=== PATIENT | female | born 1950 | race Caucasian/White ===

== ENCOUNTER → 2016-03-23 | Outpatient (CLI) | payer OTHER ==
[2016-03-23 17:38] LABS: Basophils % (A) 1 %; CH 32.1; CHCM 33.3; Eosinophils # (A) 0.2 k/uL (0-0.7); Eosinophils % (A) 2 %; HCT 43.8 % (34.0-46.0); HDW 2.24; HGB 14.4 gm/dL (11.4-16.0); Luc # (Auto) 0.15; Luc % (Auto) 2; Lymphocytes # (A) 1.7 k/uL (1.0-4.8); Lymphocytes % (A) 23 %; MCH 31.7 pg (25.0-35.0); MCHC 32.8 g/dL (31.0-37.0); MCV 96.7 fL (80.0-100.0); Mean Platelet Volume 6.5; Monocytes # (A) 0.6 k/uL (0-1.0); Monocytes % (A) 8 %; Neutrophils # (A) 4.5 k/uL (1.3-7.7); Neutrophils % (A) 64 %; RBC 4.53 m/uL (3.80-5.40); RDW 12.6 % (11.5-15.5); WBC 7.2 k/uL (3.8-10.6); WBC (Perox) 7.58
== END | disposition home or self-care (01) ==
LOC: LABPAT 16:39
PROVIDERS: ATTEND Obstetrics & Gynecology
DX: Z01.810 Encounter for preprocedural cardiovascular examination (principal); Z01.812 Encounter for preprocedural laboratory examination; N85.01 Benign endometrial hyperplasia; I10 Essential (primary) hypertension
CPT/HCPCS: 85025; 93005

== ENCOUNTER 2016-04-11 09:11 | Day surgery (SDC) | payer OTHER ==
[~2016-04-11 09:11] MED LIST: DEXAMETHASONE SOD PHOSPHATE 10 MG/ML 1 ML VIAL IV ONE; FAMOTIDINE 20 MG/2 ML VIAL IV PRN; HYDROmorphone 1 MG/ML 1 ML SYRINGE IVP PRN; MIDAZOLAM 2 MG/2 ML VIAL IV PRN; Pre Op ABX Message 1 EACH MISC MISCELLANE ONE; SCOPOLAMINE 1.5MG/72HR PATCH TRANSDERM ONE
[2016-04-11] MEDS: LACTATED RINGERS 1,000 ML IV SCH ×2 (10:09→10:45)
[2016-04-11] MEDS ORDERED: LIDOCAINE 1% 20 ML VIAL (10MG/ML) FOR IV START INTRADERMA ONE (10:09)
[2016-04-11] MEDS ORDERED: diphenhydrAMINE 50 MG/ML 1 ML VIAL IVP PRN (10:39)
[2016-04-11] MEDS ORDERED: KETOROLAC 30 MG/ML 1 ML VIAL IVP PRN (10:39)
[2016-04-11] MEDS ORDERED: METOCLOPRAMIDE 5 MG/ML 2 ML VIAL IVP PRN (10:39)
[2016-04-11] MEDS ORDERED: ONDANSETRON 4 MG/2 ML VIAL IVP PRN (10:39)
[2016-04-11] MEDS ORDERED: Acetaminophen-Codeine 300-30mg TAB PO PRN ×2 (10:39)
[2016-04-11] MEDS ORDERED: SIMETHICONE 80 MG CHEWABLE PO PRN (10:39)
[2016-04-11] MEDS ORDERED: LACTATED RINGERS 1,000 ML IV SCH (10:45)
[2016-04-11] MEDS ORDERED: SORBITOL 3% IRRIGATION 3,000 ML IRRIGATION ONE (10:46)
[2016-04-11] MEDS ORDERED: GLYCOPYRROLATE 0.2 MG/ML 2 ML VIAL ONE (10:48)
[2016-04-11] MEDS ORDERED: LIDOCAINE 1% INJ 10MG/ML (20 ML MDV) ONE (10:48)
[2016-04-11] MEDS ORDERED: PROPOFOL 10 MG/ML 20 ML VIAL IV ONE (10:48)
[2016-04-11] MEDS ORDERED: SUCCINYLCHOLINE CHLORIDE 100 MG/5 ML SYR IV ONE (10:48)
[2016-04-11] MEDS ORDERED: KETOROLAC 30 MG/ML 1 ML VIAL ONE (10:48)
[2016-04-11] MEDS ORDERED: ePHEDrine 50 MG/ML 1 ML AMP ONE (10:48)
[2016-04-11] MEDS ORDERED: MIDAZOLAM 2 MG/2 ML VIAL ONE (10:48)
--- NOTE | 2016-04-11 11:23 | P.OP ---
Date of Procedure: 04/11/16 Preoperative Diagnosis: #1. Postmenopausal bleeding #2. Small focus of complex hyperplasia without atypia #3. Possible endometrial polyp Postoperative Diagnosis: Same Procedure(s) Performed: #1. Diagnostic hysteroscopy #2. Dilation and curettage Anesthesia: RAFI Surgeon: Jaret Pearson Estimated Blood Loss (ml): 5 IV fluids (ml): 300 Urine output (ml): 30 Pathology: other (Endometrial curettings) Condition: stable Disposition: PACU Operative Findings: Preoperative pelvic examination demonstrated relatively atrophic normal shaped uterus of the exam was limited by the patient's habitus. Intraoperatively, the bilateral tubal ostia were seen and the endometrium appeared to be completely atrophic aside from 2 polypoid structures noted and the anterior endometrial wall. Thorough curettage was carried out and only a small amount of tissue returned. I was unable to have any more significant return of tissue with a polyp forceps. Nonetheless the findings appear and were felt to be benign as the typical gritty texture was encountered throughout. Description of Procedure: The patient was prepped and draped in usual fashion after general endotracheal anesthesia was administered by the anesthesiologist. A weighted speculum was placed and the anterior lip of the cervix grasped with a single-tooth tenaculum. The bladder was drained of approximately 30 mL of clear baljinder urine. The uterus was sounded to approximately 7 cm in depth. Serial dilation was carried out to admit the diagnostic hysteroscope. This was placed and the uterus distended with sorbitol. The findings are as noted above with both tubal ostia being seen and otherwise completely atrophic appearing endometrium with 2 small polypoid structures noted and the anterior uterine wall. The scope was removed and further dilation carried out to admit a small curette. The entire cavity was thoroughly and circumferentially curetted onto a Telfa in the vagina. I had a sense of 4 and the polypoid area was approached as there was a bump on the interior wall. No significant amount of polypoid tissue was observed though there was a small amount of bleeding which obscured some of the visualization of tissue. Following several passes with a sharp curette, the polyp forceps was introduced into the endometrial cavity and no significant amounts of tissue were removed. One last pass was made with the sharp curet with no further return of tissue. There is minimal ongoing bleeding. Estimated blood loss for the case was less than 5 mL. There were no complications. All sponge, instrument, and needle counts were correct. The patient tolerated the procedure well and proceeded to the recovery room in stable condition.
[2016-04-11] MEDS ORDERED: HYDROmorphone 1 MG/ML 1 ML SYRINGE IVP ONE ×2 (11:42→11:53)
[2016-04-11 11:45] VITALS: TEMP 97.6
[2016-04-11 13:34] VITALS: BP 132/75; PULSE 60; RESP 18
== END 2016-04-11 13:41 | disposition home or self-care (01) ==
LOC: OR 09:11
PROVIDERS: ATTEND Obstetrics & Gynecology
DX: N85.01 Benign endometrial hyperplasia (principal); I10 Essential (primary) hypertension; E07.9 Disorder of thyroid, unspecified; Z79.899 Other long term (current) drug therapy; M10.9 Gout, unspecified; E66.9 Obesity, unspecified; Z68.42 Body mass index [BMI] 45.0-49.9, adult; Z79.82 Long term (current) use of aspirin
CPT/HCPCS: 88305; 58558; J2250; J1100; J2001; J1885; J1170; J0330; J2704

== ENCOUNTER → 2023-03-06 | Outpatient (CLI) | payer BC, MEDICARE ==
[2023-03-06 15:11] LABS: Basophils # (A) 0.05 X 10*3/uL (0.00-0.10); Basophils % (A) 0.6 %; Eosinophils # (A) 0.22 X 10*3/uL (0.04-0.35); Eosinophils % (A) 2.7 %; HGB 14.2 g/dL (12.0-15.0); Lymphocytes # (A) 1.76 X 10*3/uL (0.90-5.00); Lymphocytes % (A) 21.4 %; MCH 31.6 pg (27.0-32.0); MCV 95.6 FL (80.0-97.0); Mean Platelet Volume 9.6 FL (9.5-12.2); Monocytes % (A) 9.7 %; NRBC Per 100 WBC 0 X 10*3/uL (0.00-0.01); Neutrophils # (A) 5.35 X 10*3/uL (1.80-7.70); Platelet Count 360 X 10*3/uL (140-440); RDW 12.7 % (11.5-14.5); WBC 8.23 X 10*3/uL (4.50-10.00)
== END | disposition home or self-care (01) ==
LOC: LABPAT 08:12
PROVIDERS: ATTEND Obstetrics & Gynecology
DX: Z01.818 Encounter for other preprocedural examination (principal); I10 Essential (primary) hypertension; N95.0 Postmenopausal bleeding; I49.1 Atrial premature depolarization; I44.4 Left anterior fascicular block; R93.89 Abnormal findings on diagnostic imaging of other specified body structures; R94.31 Abnormal electrocardiogram [ECG] [EKG]
CPT/HCPCS: 36415; 85025; 93005

== ENCOUNTER 2023-03-13 10:35 | Day surgery (SDC) | payer MEDICARE, BC ==
--- NOTE | 2023-03-10 21:50 | HP ---
HISTORY AND PHYSICAL DATE OF SCHEDULED SURGERY: 03/13/2023. HISTORY OF PRESENT ILLNESS: The patient is a 72-year-old 1, para 0, who presented to the office with postmenopausal bleeding for endometrial biopsy. She underwent the endometrial biopsy in an uncomplicated fashion at which time, minimal tissue was returned. As the patient lives relatively far away, we opted to follow up with a pelvic ultrasound pending the outcome of the biopsy, which showed only an active or atrophic endometrium. The ultrasound in the office demonstrated thickened endometrial stripe with a possible endometrial polyp. She has had similar findings historically at which time she was taken to the operating room for hysteroscopy with D and C and polypectomy several years ago. As a result of the ultrasound findings and the diagnosis of postmenopausal bleeding, decision was made to proceed to the operating room again for diagnostic hysteroscopy with D and C, and endometrial polypectomy. PAST MEDICAL HISTORY: Significant for hypertension. PAST SURGICAL HISTORY: Significant for appendectomy, remote D and C, tonsillectomy, and then the more recent D and C with hysteroscopy noted in history of present illness. There have been no anesthetic concerns though she has had some difficulty with waking up. OBSTETRICAL HISTORY: 1, para 0 with 1 early miscarriage. GYNECOLOGIC HISTORY: Unremarkable except as pertains to history of present illness. FAMILY HISTORY: Noncontributory. SOCIAL HISTORY: The patient is and is a homemaker. She is a nonsmoker and denies any significant alcohol or any other social concerns. CURRENT MEDICATIONS: Include, 1. Baby aspirin daily. 2. Calcium supplementation daily. 3. Vitamin C daily. 4. Fish oil daily. 5. Hydrochlorothiazide 25 mg daily. 6. Lopressor 50 mg daily. 7. Synthroid 100 mcg daily. 8. Tramadol 50 mg as needed. 9. Xanax 0.25 mg p.r.n. ALLERGIES: No known drug allergies. REVIEW OF SYSTEMS: Confined to history of present illness. PHYSICAL EXAMINATION: VITAL SIGNS: Stable and the patient is afebrile. GENERAL: This is a well-developed, well-nourished white female, in no acute distress. HEART: Has regular rhythm and rate without murmur. LUNGS: Clear to auscultation bilaterally in all christy. ABDOMEN: Nondistended, has normoactive bowel sounds, soft, nontender, without any palpable masses, hepatosplenomegaly, or hernias. EXTREMITIES: Without any cyanosis, clubbing, or edema and are nontender to palpation. PELVIS: Deferred to the operating room. She did at the time of endometrial biopsy have a normal-appearing cervix without significant stenosis and the uterus sounded to 7 cm. ASSESSMENT AND PLAN: Postmenopausal bleeding: Given the ultrasound findings of a thickened endometrial stripe and possible/probable endometrial polyp, the decision has been made to proceed to the operating room for diagnostic hysteroscopy, D and C, and endometrial polypectomy as needed. The risks and complications of the procedure have been thoroughly discussed including the risks for bleeding, bleeding requiring transfusion, infection, and injury to local structures to specifically include uterine perforation, and subsequent Asherman syndrome. She has understood all these concerns and has agreed to proceed. MMODL / IJN: [id number] /
[~2023-03-13 10:35] MED LIST changes: -DEXAMETHASONE SOD PHOSPHATE 10 MG/ML 1 ML VIAL IV ONE; +DEXAMETHASONE SOD PHOSPHATE 4 MG/ML 1 ML VIAL IV ONE; -FAMOTIDINE 20 MG/2 ML VIAL IV PRN; +HYDROmorphone 0.5 MG/0.5 ML SYRINGE IVP PRN; -HYDROmorphone 1 MG/ML 1 ML SYRINGE IVP PRN; +LACTATED RINGERS 1,000 ML IV SCH; +LIDOCAINE 1% (10MG/ML) FOR IV START INTRADERMA PRN; +ONDANSETRON 4 MG/2 ML VIAL IVP ONE; -SCOPOLAMINE 1.5MG/72HR PATCH TRANSDERM ONE
[2023-03-13 11:13] VITALS: RESP 16
[2023-03-13] MEDS ORDERED: LACTATED RINGERS 1,000 ML IV ONE (11:13)
[2023-03-13] MEDS ORDERED: DEXAMETHASONE SOD PHOSPHATE 4 MG/ML 1 ML VIAL IVP ONE (11:17)
[2023-03-13] MEDS ORDERED: ONDANSETRON 4 MG/2 ML VIAL IVP ONE (11:17)
[2023-03-13] MEDS ORDERED: KETOROLAC 30 MG/ML 1 ML VIAL ONE (14:02)
[2023-03-13] MEDS ORDERED: LIDOCAINE 1% INJ 10MG/ML (20 ML MDV) ONE (14:02)
[2023-03-13] MEDS ORDERED: MIDAZOLAM 2 MG/2 ML VIAL ONE (14:02)
[2023-03-13] MEDS ORDERED: PROPOFOL 10 MG/ML 20 ML VIAL IV ONE (14:02)
[2023-03-13] MEDS ORDERED: fentaNYL (PF) 50 MCG/ML 2 ML AMP ONE (14:02)
[2023-03-13] MEDS ORDERED: SORBITOL 3% IRRIG 3,000 ML BAG IRRIGATION ONE (14:15)
[2023-03-13] MEDS ORDERED: ONDANSETRON 4 MG/2 ML VIAL IVP PRN (14:28)
[2023-03-13] MEDS ORDERED: METOCLOPRAMIDE 5 MG/ML 2 ML VIAL IVP PRN (14:28)
[2023-03-13] MEDS ORDERED: diphenhydrAMINE 50 MG/ML 1 ML VIAL IVP PRN (14:28)
[2023-03-13] MEDS ORDERED: KETOROLAC 15 MG/ML 1 ML VIAL IVP PRN (14:28)
[2023-03-13] MEDS ORDERED: Acetaminophen-Codeine 300-30mg TAB PO PRN ×2 (14:28)
[2023-03-13] MEDS ORDERED: SIMETHICONE 80 MG CHEWABLE PO PRN (14:28)
[2023-03-13] MEDS ORDERED: IBUPROFEN 600 MG TAB PO PRN (14:28)
[2023-03-13] MEDS ORDERED: LACTATED RINGERS 1,000 ML IV SCH (14:30)
--- NOTE | 2023-03-13 14:36 | P.OP ---
Date of Procedure: 03/13/23 Preoperative Diagnosis: #1. Postmenopausal bleeding #2. Suspected endometrial polyp #3. Thick endometrial stripe Postoperative Diagnosis: Same Procedure(s) Performed: #1. Diagnostic hysteroscopy #2. Endometrial polypectomy #3. Dilation and curettage Anesthesia: other (Gen. by face mask) Surgeon: Jaret Pearson Estimated Blood Loss (ml): 5 IV fluids (ml): 400 Urine output (ml): 2 Pathology: other (Endometrial contents) Condition: stable Disposition: PACU Operative Findings: Preoperative pelvic examination demonstrated a atrophic midplane mobile normal shaped uterus with normal adnexa bilaterally. Intraoperatively, the uterus sounded to 7 cm. Using the hysteroscope, a clear polypoid structure was seen emanating from the posterior aspect of the lower uterine segment and was removed and a number of pieces with the polyp forceps. There was minimal to no tissue removed during curettage. The remainder of the hysteroscopy of the uterus appeared to be completely atrophic and the bilateral tubal ostia were seen. Description of Procedure: The patient was prepped and draped in usual fashion after general anesthesia was administered by the anesthesiologist. A weighted speculum was placed and the bladder drained of 2 mL of clear baljinder urine. The anterior lip of the cervix was grasped with a single-tooth tenaculum and uterus sounded to 7 cm as noted above. Serial dilation was carried out to admit the diagnostic hysteroscope which was placed into the endometrial cavity and the cavity distended with sorbitol. The findings are as noted above with general atrophy throughout the upper aspect of the in vitro cavity but a clear polypoid structure was seen emanating from the posterior lower uterine segment. No other findings were noted. After adequate hysteroscopy had been carried out, the scope was set aside and the polyp forceps was utilized to grasp and remove the polypoid structure though it did fragment into several pieces. After the entire polyp was thought to been removed, curettage was carried out with a small sharp curette which was used to circumferentially curet the entire lining of the uterus onto a Telfa placed in the vagina. There was minimal to no tissue pr oduced in the typical gritty texture was encountered throughout. All instrumentation was then removed. There was no significant ongoing bleeding either from the cervix or the tenaculum site. Assessment a blood loss for the case was 5 mL or less. There were no complications. The patient tolerated the procedure well and proceeded to the recovery room in stable condition.
[2023-03-13 14:49] VITALS: TEMP 98
[2023-03-13 15:38] VITALS: BP 119/82; PULSE 65
[2023-03-14] MEDS ORDERED: ACETAMINOPHEN TAB 325 MG TAB PO PRN (14:30)
== END 2023-03-13 16:05 | disposition home or self-care (01) ==
LOC: OR 10:35
PROVIDERS: ATTEND Obstetrics & Gynecology
DX: N84.0 Polyp of corpus uteri (principal); N95.0 Postmenopausal bleeding; I10 Essential (primary) hypertension; E07.9 Disorder of thyroid, unspecified; G47.33 Obstructive sleep apnea (adult) (pediatric); E66.01 Morbid (severe) obesity due to excess calories; Z90.49 Acquired absence of other specified parts of digestive tract; Z98.890 Other specified postprocedural states; Z79.890 Hormone replacement therapy; Z79.82 Long term (current) use of aspirin; Z79.899 Other long term (current) drug therapy
CPT/HCPCS: 58558; 88305; J2250; J1100; J2405; J2001; J3010; J1885; J2704